=== PATIENT | female | born 1975 | race Two or more races ===

== ENCOUNTER → 2025-02-24 | Outpatient (CLI) | payer MEDICAID, SELFPAY ==
--- NOTE | 2025-02-24 12:30 | XR_ITS ---
Examination: Breast ultrasound complete, bilateral Date and time of exam: February 25, 2020 01/20/1946 INDICATIONS: Patient states pain and hardening of both breasts 4 months with brown discharge from the nipple is Technique: Real-time grayscale ultrasonographic imaging bilateral breasts, including all 4 quadrants as well as nipple retroareolar and axillary regions. Findings: No cystic or solid mass IMPRESSION: BI-RADS Category 1: Negative study
--- NOTE | 2025-02-24 13:30 | XR_ITS ---
Examination: Diagnostic digital mammography, bilateral Computer aided detection 3-D breast Tomosynthesis, bilateral Date and time of exam: 06/26/2025 1305 hours INDICATIONS: Bilateral breast pain 3 years, family history breast cancer Technique: Nonmagnified MLO, CC views of the breasts to been obtained, reconstructed from 3-D Tomosynthesis images. R2 computer aided detection program utilized for evaluation of suspicious masses and/or abnormal calcifications. 3-D Tomosynthesis images obtained. Findings: Scattered areas of fibroglandular density. Grouped suspicious microcalcifications upper outer left breast with associated 40 mm area of increased radiodensity in the upper outer quadrant left breast Abnormally enlarged left axillary lymph nodes Impression: BI-RADS Category 0: Incomplete: Need additional imaging evaluation Recommend follow-up magnification spot compression views of suspicious microcalcifications upper outer left breast Recommend follow-up spot tomographic views of suspicious focal asymmetry 4 cm upper outer left breast Recommend repeat left breast sonography with specific attention to the upper outer quadrant left breast and to enlarged lymph nodes in the left axilla
== END | disposition home or self-care (01) ==
PROVIDERS: PCP Nurse Practitioner Family; Referring Provider Nurse Practitioner Family; Visit Provider Nurse Practitioner Family
DX: Z12.31 Encounter for screening mammogram for malignant neoplasm of breast (principal); N64.4 Mastodynia; R59.0 Localized enlarged lymph nodes; R92.323 Mammographic fibroglandular density, bilateral breasts; R92.0 Mammographic microcalcification found on diagnostic imaging of breast
CPT/HCPCS: 76641; 77062; 77066; G0279

== ENCOUNTER → 2025-05-21 | Outpatient (CLI) | payer MEDICAID, SELFPAY ==
--- NOTE | 2025-05-21 10:30 | XR_ITS ---
Examination: Breast ultrasound, unilateral, left complete Date and time of exam: CT abdomen dated 2024 1053 hours INDICATIONS: Left breast pain beginning 5 months ago, family history breast cancer Technique: Real-time john scale ultrasonographic imaging performed left breast including all 4 quadrants as well as nipple retroareolar and axillary region. Findings: No cystic or solid mass 17 mm axillary lymph node with smaller lymph nodes IMPRESSION: BI-RADS Category 2: Benign findings
== END | disposition home or self-care (01) ==
PROVIDERS: PCP Family Medicine; Referring Provider Family Medicine; Visit Provider Family Medicine
DX: R59.9 Enlarged lymph nodes, unspecified (principal)
CPT/HCPCS: 76641